=== PATIENT | male | born 1975 | race African-American/Black ===

== ENCOUNTER 2016-10-24 16:48 | Emergency (ER) | payer SELFPAY ==
--- NOTE | 2016-10-24 17:37 | ED.PDOC ---
History of Present Illness - General Chief Complaint: Headache Stated Complaint: headache and R eye pain Time Seen by Provider: 10/24/16 17:22 Source: patient, RN notes reviewed, Vital Signs reviewed Exam Limitations: no limitations - History of Present Illness Initial Comments: Stated while working at [employer] he had onset of sharp right sided headache accommpanied by blurry vision while at work at [employer] which persisted here in er Denies history of head or eye trauma Timing/Duration: 1-3 hours Quality: constant, sharp Head Injury Location: frontal, parietal Recent Head Trauma: no recent headache/trauma Improving Factors: nothing Worsening Factors: nothing Associated Symptoms: denies symptoms Allergies/Adverse Reactions: Allergies NO KNOWN ALLERGY Allergy (Verified 10/24/16 17:25) Home Medications: Ambulatory Orders Diphenhydramine HCl [Benadryl] 50 mg PO TID PRN #60 cap 10/24/16 Ibuprofen [Motrin] 800 mg PO TID PRN #120 tab 10/24/16 Review of Systems - Review of Systems Constitutional: States: no symptoms reported EENTM: States: no symptoms reported, tearing Cardiology: States: no symptoms reported Gastrointestinal/Abdominal: States: no symptoms reported Genitourinary: States: no symptoms reported Musculoskeletal: States: no symptoms reported Skin: States: no symptoms reported Neurological: States: see HPI Endocrine: States: no symptoms reported Past Medical History (General) - Patient Medical History Hx Seizures: No Hx Stroke: No Hx Dementia: No Hx Asthma: No Hx of COPD: No Hx Cardiac Disorders: No Hx Congestive Heart Failure: No Hx Pacemaker: No Hx Hypertension: No Hx Thyroid Disease: No Hx Diabetes: No Hx Gastroesophageal Reflux: No Hx Renal Disease: No Hx Cancer: No Hx of HIV: No Hx Hepatitis C: No Hx MRSA: No MRSA Source:: Wound Surgical History: no surgical history - Vaccination History Hx Tetanus, Diphtheria Vaccination: Yes Hx Influenza Vaccination: No Hx Pneumococcal Vaccination: No Immunizations Up to Date: Yes - Social History Hx Tobacco Use: Yes Hx Chewing Tobacco Use: No Hx Alcohol Use: No Hx Substance Use: No Hx Substance Use Treatment: No Hx Depression: No Feels Threatened In Home Enviroment: No Feels Threatened In a Relationship: No Hx Physical Abuse: No Hx Emotional Abuse: No Hx Suspected Abuse: No - Female History Patient is a Female of Child Bearing Age (10 -59 yrs old): No Patient : No Family Medical History - Family History Mother Family History: Unknown Living Status: Still Living Hx Family;Other: osteoarthritis Physical Exam - Physical Exam General Appearance: Alert, Anxious, No apparent distress Eyes, Ears, Nose, Throat Exam: PERRL/EOMI, normal ENT inspection, TMs normal, pharynx normal, other - no papilledema Neck: non-tender, full range of motion, supple, normal inspection, trachea midline Cardiovascular/Chest: normal peripheral pulses, regular rate, rhythm, no edema, no gallop, no JVD, no murmur Respiratory: chest non-tender, lungs clear, normal breath sounds, no respiratory distress Gastrointestinal/Abdominal: normal bowel sounds, non tender, soft, no organomegaly Back Exam: normal inspection, no CVA tenderness, no vertebral tenderness 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 10/24/16 19:[address] Head resutl to patient with no abnormalities noted by radiologist - EKG/XRAY/CT CT: Head w/contrast-no acute abnomality noted Departure - Departure Clinical Impression: Headache around the eyes Time of Disposition: 19:05 Disposition: Discharge to Home or Self Care Condition: Good Departure Forms: ED Discharge - Pt. Copy, Patient Portal Self Enrollment Instructions: DI for Headache Activity: other - EXCUSE FROM WORK 10/25/2016;RETURN TO WORK UNRESTRICTED 2016 Prescriptions: Diphenhydramine HCl [Benadryl] 50 mg PO TID PRN #60 cap PRN Reason: Allergies Ibuprofen [Motrin] 800 mg PO TID PRN #120 tab PRN Reason: Headache/Migraine Pain Home Medications: Ambulatory Orders Diphenhydramine HCl [Benadryl] 50 mg PO TID PRN #60 cap 10/24/16 Ibuprofen [Motrin] 800 mg PO TID PRN #120 tab 10/24/16 Additional Instructions: ;RETURN TO EMERGENCY ROOM NEEDED;NEED TO SIGN UP WITH PRIMARY MD PATIENT TO CALL FOR APPOINTMENT;EXCUSE FROM WORK 10/25/2016 RETURN TO UNRESTRICTED WORK 03/2017.
[2016-10-24] MEDS ORDERED: DEXAMETHASONE INJ 4 MG/ML VIAL IV ONE (17:42)
[2016-10-24] MEDS ORDERED: KETOROLAC TROMETHAMINE INJ 30 MG/ML VIAL IV ONE (17:42)
[2016-10-24] MEDS ORDERED: diphenhydrAMINE HCL 25 MG CAP PO ONE (17:43)
--- NOTE | 2016-10-24 18:04 | CT ---
EXAM DESCRIPTION: CT HEAD WITHOUT IV CONTRAST CLINICAL HISTORY: 41-year-old male with headache. COMPARISON: None. TECHNIQUE: CT brain without contrast. FINDINGS: The ventricles, sulci, and cisterns are within normal limits. The gzt-white matter differentiation is preserved. There is no mass effect, midline shift, intra- or extra-axial fluid collection/acute hemorrhage. The osseous structures are within normal limits. The paranasal sinuses and mastoid air cells are clear. IMPRESSION: No acute intracranial abnormalities. Electronically signed by: Mary Jane Fontenot MD 10/24/2016 18:02
[2016-10-24] MEDS ORDERED: predniSONE 20 MG TAB PO ONE (19:03)
[2016-10-24 19:44] VITALS: BP 124/85; TEMP 97.8; O2SAT 97
== END 2016-10-24 19:43 | disposition home or self-care (01) ==
LOC: ER 16:48
DX: R51 Headache (principal); Z87.891 Personal history of nicotine dependence
CPT/HCPCS: 70450; J1100; J1885; J7512; Q0163

== ENCOUNTER 2017-12-17 14:25 | Emergency (ER) | payer OTHER ==
[2017-12-17 14:41] VITALS: TEMP 97.6; O2SAT 100
[2017-12-17] MEDS ORDERED: diazePAM 2 MG TAB PO ONE (14:49)
[2017-12-17] MEDS ORDERED: SODIUM CHLORIDE 0.9% 1000ML 1,000 ML IVS ONE (14:50)
--- NOTE | 2017-12-17 15:44 | CT ---
EXAM DESCRIPTION: Head CLINICAL HISTORY: frontal headache 6 hours COMPARISON: None available TECHNIQUE: Non contrast cranial CT.This exam was performed according to our departmental dose-optimization program, which includes automated exposure control, adjustment of the mA and/or kV according to patient size and/or use of iterative reconstruction technique. FINDINGS: Ventricles and sulci are unremarkable. There is no hemorrhage or mass. There are no white matter abnormalities detected. The calvarium is unremarkable. The visualized paranasal sinuses and the mastoids are clear. IMPRESSION: Normal CT head Electronically signed by: Melvin Cruz MD 12/17/2017 3:43 PM [facility]
--- NOTE | 2017-12-17 16:44 | ED.PDOC ---
History of Present Illness - General Chief Complaint: Drug or Alcohol Abuse Stated Complaint: thinks he is detoxing from meth Time Seen by Provider: 12/17/17 14:41 Source: patient Exam Limitations: no limitations - History of Present Illness Initial Comments: the patient is a 42-year-old [place] male presenting to the emergency room secondary to symptoms of mild diaphoresis, agitation and anxiety as well as a mild to moderate headache progressive over the last 24 hours. The patient was taken into custody approximately 2-3 days ago and he had been using methamphetamines prior. He denies the abuse of any other controlled substances. No significant alcohol abuse. No syncope or near-syncope. No trauma. No history of any long-term medical problems otherwise. Headache is primarily frontal. He has no altered mental status otherwise. No focal neurological defects. No evidence of any infection on physical exam. He is not febrile but he is mildly diaphoretic and anxious. He is in cuffs. Timing/Duration: 24 hours Severity: moderate Improving Factors: nothing Worsening Factors: nothing Associated Symptoms: diaphoresis, malaise, nausea/vomiting Allergies/Adverse Reactions: Allergies NO KNOWN ALLERGY Allergy (Verified 10/24/16 17:25) Home Medications: Ambulatory Orders NK [NK] 12/17/17 Review of Systems - Review of Systems Constitutional: States: diaphoresis EENTM: States: no symptoms reported Respiratory: States: no symptoms reported Cardiology: States: no symptoms reported Gastrointestinal/Abdominal: States: nausea - occasional mild Genitourinary: States: no symptoms reported Musculoskeletal: States: no symptoms reported Skin: States: no symptoms reported Neurological: States: anxiety, headache Endocrine: States: no symptoms reported All other Systems: No Change from Baseline Past Medical History (General) - Patient Medical History Hx Seizures: No Hx Stroke: No Hx Dementia: No Hx Asthma: No Hx of COPD: No Hx Cardiac Disorders: No Hx Congestive Heart Failure: No Hx Pacemaker: No Hx Hypertension: No Hx Thyroid Disease: No Hx Diabetes: No Hx Gastroesophageal Reflux: No Hx Renal Disease: No Hx Cancer: No Hx of HIV: No Hx Hepatitis C: No Hx MRSA: No MRSA Source:: Wound Surgical History: no surgical history - Vaccination History Hx Tetanus, Diphtheria Vaccination: Yes Hx Influenza Vaccination: No Hx Pneumococcal Vaccination: No - Social History Hx Tobacco Use: Yes Hx Chewing Tobacco Use: No Hx Alcohol Use: No Hx Substance Use: No Hx Substance Use Treatment: No Hx Depression: No Hx Physical Abuse: No Hx Emotional Abuse: No Hx Suspected Abuse: No - Female History Patient : No Family Medical History - Family History Mother Family History: Unknown Living Status: Still Living Hx Family;Other: osteoarthritis Physical Exam - Physical Exam General Appearance: Alert, Other - the patient has poor eye contact. He is alert and oriented 4. He is mildly diaphoretic. He is a little bit jittery. No evidence of any hallucinations or jasmin paranoia. He is not combative Eye Exam: bilateral normal Ears, Nose, Throat: hearing grossly normal, normal ENT inspection, normal pharynx Neck: full range of motion, supple, normal inspection Respiratory: lungs clear, normal breath sounds, no respiratory distress, no accessory muscle use Cardiovascular/Chest: normal peripheral pulses, regular rate, rhythm, no edema Peripheral Pulses: radial,right: 2+, radial,left: 2+, dorsalis pedis,right: 2+, dorsalis pedis,left: 2+ Gastrointestinal/Abdominal: non tender, soft Rectal Exam: deferred Back Exam: normal inspection, no CVA tenderness, no vertebral tenderness Extremity: normal range of motion, non-tender, normal inspection, no pedal edema , normal capillary refill Neurologic: kalsominer II-XII nml as tested, no motor/sensory deficits, alert, oriented x 3 Skin Exam: diaphoresis Comments: Vital Signs - 24 hr 12/17/17 12/17/17 14:36 16:17 Temperature 97.6 F Pulse Rate [ 97 H 71 Right Brachial] Respiratory 20 20 Rate Blood Pressure 137/89 136/91 [Right Arm] O2 Sat by Pulse 100 100 Oximetry Progress - Progress Progress: 12/17/17 16:45 The patient's 42-year-old male presenting to the emergency room secondary to headache and diaphoresis. Head CT and lab work did not show any evidence of any acute pathology. The patient was given a liter of IV fluids and some anxiety medications and is feeling significantly better. I believe his symptoms are due to substance withdrawal. He needs to keep himself well hydrated. Symptoms will likely persist another 3 days or so. The patient does have some mild microcytosis on his blood work which may indicate iron deficiency or possibly a sickle cell carrier trait. He should have this followed up with his primary care doctor at the next available opportunity. ER warnings are given for any significant worsening. - Results/Orders Results/Orders: Laboratory Tests 12/17/17 12/17/17 12/17/17 15:31 15:31 15:31 WBC 4.5 L RBC 6.85 H Hgb 15.3 Hct 48.5 MCV 70.8 L MCH 22.3 L MCHC 31.5 L RDW 15.3 H Plt Count 208 MPV 9.2 Absolute Neuts (auto) 2.30 Absolute Lymphs (auto) 1.60 Absolute Monos (auto) 0.40 Absolute Eos (auto) 0.10 Absolute Basos (auto) 0.00 Neutrophils % 51.9 Lymphocytes % 36.6 Monocytes % 8.6 Eosinophils % 1.8 Basophils % 1.1 Normal RBC Morphology Plts jennifer adequate Sodium 138 Potassium 3.7 Chloride 104 Carbon Dioxide 23 Anion Gap 14.7 BUN 9 Creatinine 1.13 BUN/Creatinine Ratio 8.0 L Random Glucose 113 H Serum Osmolality 275.2 Lactic Acid 3.1 H* Calcium 9.7 Total Bilirubin 0.6 AST 25 ALT 24 Alkaline Phosphatase 92 Creatine Kinase 310 H* CK-MB (CK-2) 3.5 CK-MB (CK-2) % Not Reportable Troponin I < 0.02 B-Natriuretic Peptide < 5.0 Serum Total Protein 7.6 Albumin 4.5 Globulin 3.1 Albumin/Globulin Ratio 1.5 Amylase 59 Lipase 23 Urine Color Urine Appearance Urine pH Ur Specific [place] Urine Protein Urine Glucose (UA) Urine Ketones Urine Blood Urine Nitrite Urine Bilirubin Urine Urobilinogen Ur Leukocyte Esterase Urine RBC Urine WBC Ur Epithelial Cells Amorphous Sediment Urine Bacteria 12/17/17 16:05 WBC RBC Hgb Hct MCV MCH MCHC RDW Plt Count MPV Absolute Neuts (auto) Absolute Lymphs (auto) Absolute Monos (auto) Absolute Eos (auto) Absolute Basos (auto) Neutrophils % Lymphocytes % Monocytes % Eosinophils % Basophils % Normal RBC Morphology Sodium Potassium Chloride Carbon Dioxide Anion Gap BUN Creatinine BUN/Creatinine Ratio Random Glucose Serum Osmolality Lactic Acid Calcium Total Bilirubin AST ALT Alkaline Phosphatase Creatine Kinase CK-MB (CK-2) CK-MB (CK-2) % Troponin I B-Natriuretic Peptide Serum Total Protein Albumin Globulin Albumin/Globulin Ratio Amylase Lipase Urine Color Yellow Urine Appearance Clear Urine pH 8.5 H Ur Specific [place] 1.015 Urine Protein Negative Urine Glucose (UA) Negative Urine Ketones 15 H Urine Blood Negative Urine Nitrite Negative Urine Bilirubin Negative Urine Urobilinogen 0.2 Ur Leukocyte Esterase Negative Urine RBC 0-1 Urine WBC 0-1 Ur Epithelial Cells 3-5 Amorphous Sediment 1+ Urine Bacteria [address] is negative for any acute intracranial pathology. EKG shows normal sinus rhythm. Rate is 61 bpm. Normal QT interval. No acute ST segment changes concerning for ischemia. Normal R-wave progression. 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 Copy, Patient Portal Self Enrollment Instructions: DI for Drug Withdrawal Diet: regular diet Activity: increase activity as tolerated Home Medications: Ambulatory Orders NK [NK] 12/17/17 Additional Instructions: The patient's 42-year-old male presenting to the emergency room secondary to headache and diaphoresis. Head CT and lab work did not show any evidence of any acute pathology. The patient was given a liter of IV fluids and some anxiety medications and is feeling significantly better. I believe his symptoms are due to substance withdrawal. He needs to keep himself well hydrated. Symptoms will likely persist another 3 days or so. The patient does have some mild microcytosis on his blood work which may indicate iron deficiency or possibly a sickle cell carrier trait. He should have this followed up with his primary care doctor at the next available opportunity. ER warnings are given for any significant worsening.
[2017-12-17 17:01] VITALS: BP 143/90
== END 2017-12-17 17:00 | disposition home or self-care (01) ==
LOC: ER 14:25
DX: Z87.891 Personal history of nicotine dependence (principal)
CPT/HCPCS: 36415; 70450; 80053; 81001; 82150; 82550; 82553; 83605; 83690; 83880; 84484; 85025; 93005; J7030